=== PATIENT | female | born 1995 | race African-American/Black ===

== ENCOUNTER 2018-07-22 20:12 | Emergency (ER) | payer SELFPAY ==
[~2018-07-22] VITALS: Wt 67.5 kg
[2018-07-22 20:15] VITALS: Wt 67.5 kg
--- NOTE | 2018-07-22 22:20 | ERD ---
ER Documentation Chief Complaint Chief Complaint ginny ra from home for cutting herself on the right forearm /wrist area hx si HPI This is a 22-year-old female who is here for cutting her left wrist. The patient states that she got into an argument with her boyfriend and she said she had a box blank machine operator at home and she cut her wrists because she thought it would make her feel better. She said when she was 10 years old she cut her wrists on purpose because she read that bloodletting would make you feel better so she thought she would try this again. She is denying any suicidal ideation to me. The boyfriend is here with [facility] and he says that they got into a break up an argument earlier this evening and that she called him and told him that she is going to the store to buy a box blank machine operator and slit her wrist to kill herself. ROS All systems reviewed and are negative except as per history of present illness. PMhx/Soc Medical and Surgical Hx: pt denies Medical Hx, pt denies Surgical Hx History of Surgery: No Anesthesia Reaction: No Hx Neurological Disorder: No Hx Respiratory Disorders: No Hx Cardiac Disorders: No Hx Psychiatric Problems: Yes (hx of si 10 + years ago ) Hx Miscellaneous Medical Probl: No Hx Alcohol Use: No Hx Substance Use: No Hx Tobacco Use: No Smoking Status: Never smoker FmHx Family History: No coronary disease Physical Exam Vitals Vital Signs Date Temp Pulse Resp B/P (MAP) Pulse Ox O2 O2 Flow FiO2 Time Delivery Rate 07/22/18 98.3 89 19 126/65 100 20:15 (85) Physical Exam Const: No acute distress Head: Atraumatic Eyes: Normal Conjunctiva ENT: Normal External Ears, Nose and Mouth. Neck: Full range of motion. No meningismus. Resp: Clear to auscultation bilaterally Cardio: Regular rate and rhythm, no murmurs Abd: Soft, non tender, non distended. Normal bowel sounds Skin: Multiple superficial lacerations to the left volar surface of the distal forearm nothing is suturable Back: No midline or flank tenderness Ext: No cyanosis, or edema Neur: Awake and alert Psych: She is denying suicidal ideation however her reasoning is irrational Result Diagram: 07/22/18202907/22/182029 Results 24 hrs Laboratory Tests Test 07/22/18 20:30 White Blood Count 6.2 10^3/ul Red Blood Count 4.37 10^6/ul Hemoglobin 13.3 g/dl Hematocrit 40.0 % Mean Corpuscular Volume 91.5 fl Mean Corpuscular Hemoglobin 30.4 pg Mean Corpuscular Hemoglobin Concent 33.3 g/dl Red Cell Distribution Width 13.9 % Platelet Count 211 10^3/UL Mean Platelet Volume 11.7 fl Immature Granulocytes % 0.200 % Nucleated Red Blood Cells % 0.0 /100WBC Immature Granulocytes # 0.010 10^3/ul Sodium Level 141 mmol/L Potassium Level 3.6 mmol/L Chloride Level 105 mmol/L Carbon Dioxide Level 22 mmol/L Anion Gap 14 Blood Urea Nitrogen 12 mg/dl Creatinine 0.71 mg/dl Est Glomerular Filtrat Rate mL/min > 60 mL/min Glucose Level 88 mg/dl Calcium Level 9.7 mg/dl Total Bilirubin 0.4 mg/dl Direct Bilirubin 0.00 mg/dl Indirect Bilirubin 0.4 mg/dl Aspartate Amino Transf (AST/SGOT) 28 IU/L Alanine Aminotransferase (ALT/SGPT) 14 IU/L Alkaline Phosphatase 57 IU/L Total Protein 8.1 g/dl Albumin 4.6 g/dl Globulin 3.50 g/dl Albumin/Globulin Ratio 1.31 Salicylates Level < 1.0 mg/dl Urine Opiates Screen Negative Acetaminophen Level < 10.0 ug/ml Urine Barbiturates Negative Urine Amphetamines Screen Negative Urine Benzodiazepines Screen Negative Urine Cocaine Screen Negative Urine Cannabinoids Negative Ethyl Alcohol Level < 10.0 mg/dl Procedures/MDM Patient will be evaluated by telemetry psychiatry will be on a 5150 hold per [employer] and transferred to inpatient Departure Diagnosis: Primary Impression: Suicidal ideation Condition: Stable JOSE GOMEZ DO Jul 22, 2018 22:20
--- NOTE | 2018-07-23 00:28 | PSY ---
Date/Time of Note Date/Time of Note DATE: 07/23/18 TIME: 00:03 Psychiatric Subjective Eval Consent Pt consented to telemedicine: Yes Subjective Evaluation Patient location: emergency Chief Complaint: bib ra from home for cutting herself on the right forearm /wrist area hx si Medical history Problems Medical Problems: (1) Suicidal ideation Status: Acute Psychiatric Objective Eval Mental Status Examination: Laboratory Results Laboratory Tests Test 07/22/18 20:30 White Blood Count 6.2 10^3/ul Red Blood Count 4.37 10^6/ul Hemoglobin 13.3 g/dl Hematocrit 40.0 % Mean Corpuscular Volume 91.5 fl Mean Corpuscular Hemoglobin 30.4 pg Mean Corpuscular Hemoglobin Concent 33.3 g/dl Red Cell Distribution Width 13.9 % Platelet Count 211 10^3/UL Mean Platelet Volume 11.7 fl Immature Granulocytes % 0.200 % Nucleated Red Blood Cells % 0.0 /100WBC Immature Granulocytes # 0.010 10^3/ul Sodium Level 141 mmol/L Potassium Level 3.6 mmol/L Chloride Level 105 mmol/L Carbon Dioxide Level 22 mmol/L Anion Gap 14 Blood Urea Nitrogen 12 mg/dl Creatinine 0.71 mg/dl Est Glomerular Filtrat Rate mL/min > 60 mL/min Glucose Level 88 mg/dl Calcium Level 9.7 mg/dl Total Bilirubin 0.4 mg/dl Direct Bilirubin 0.00 mg/dl Indirect Bilirubin 0.4 mg/dl Aspartate Amino Transf (AST/SGOT) 28 IU/L Alanine Aminotransferase (ALT/SGPT) 14 IU/L Alkaline Phosphatase 57 IU/L Total Protein 8.1 g/dl Albumin 4.6 g/dl Globulin 3.50 g/dl Albumin/Globulin Ratio 1.31 Salicylates Level < 1.0 mg/dl Urine Opiates Screen Negative Acetaminophen Level < 10.0 ug/ml Urine Barbiturates Negative Urine Amphetamines Screen Negative Urine Benzodiazepines Screen Negative Urine Cocaine Screen Negative Urine Cannabinoids Negative Ethyl Alcohol Level < 10.0 mg/dl Assessment and Plan Recommendation/Plan Multiple antipsychotics: No Discharge Disposition: Psychiatric inpatient Legal Status: Continue involuntary hold Assessment Additional comments: IDENTIFYING INFORMATION: 22 year old -[place] Female patient who is currently located at the hospital and for whom psychiatric consultation was requ ested. SOURCES OF INFORMATION: The patient who appears to be somewhat reliable and the medical records; the nursing staff. I asked to discuss with the patient's boyfriend to obtain collateral but he was not available. the patient reports that she does not know his number, and he was not at the waiting area. CHIEF COMPLAINT: "I cut myself". HISTORY OF PRESENT ILLNESS: The patient was interviewed via telemedicine in the presence of and under the supervision of nursing staff of the hospital. The consent to conducting this interview via telemedicine was obtained by the nursing staff at the hospital. VERONICA Urena reports that the patient presented with self-inflicted laceration to forearm. According to the emergency room physician's note, the patient told her boyfriend that she was going to buy a jukebox coin collector and slit her wrists to kill herself. The patient reports having cut herself to feel better. Reports that her boyfriend thinks that she was trying to kill herself. Admits to intermittent depression. The patient denies having anhedonia, insomnia, low appetite, AH, VH, delusions. The patient denies using alcohol heavily or regularly. The patient denies using any other substances. In terms of past psychiatric history, the patient reports having a history of no past psychiatric hospitalizations. The patient reports having a history of h/o self-harm, by cutting herself; denies having h/o past suicide attempts. PAST MEDICAL HISTORY: none. CURRENT MEDICATIONS: none. ALLERGIES TO MEDICATIONS: NKDA. LABORATORY TESTS: CBC unremarkable, CMP unremarkable, UDS negative, alcohol level not detected. SOCIAL HISTORY: lives with boyfriend, , but , no children; self-employed as an adult film actress, graduated from high school; no access to firearms. REVIEW OF SYSTEMS: Constitutional (e.g., fever, weight loss): negative; Eyes, Ears, Nose, Mouth, Throat: negative; Cardiovascular: negative; Respiratory: negative; Gastrointestinal: negative; Genitourinary: negative; Musculoskeletal: negative; Integumentary (skin and/or breast): negative; Neurological: negative; Psychiatric: as per HPI; Endocrine: negative; Hematologic/Lymphatic: negative; Allergic/Immunologic: negative. MENTAL STATUS EXAMINATION: General Appearance and Behavior: Calm, cooperative with the interview, pleasant with the current interviewer, makes fair eye contact, fairly groomed, no abnormal movements noted, Speech: Regular rate, regular rhythm, normal latency, normal volume, somewhat decreased amount, Flow of thought: sequential, logical, goal-directed, Content of thought: no auditory hallucinations, no visual hallucinations, no delusions, positive for suicidal ideation; no homicidal ideation, Mood: "upset", Affect: dysthymic, reactive, Attention: normal based on the interview, Insight: fair, Judgment: poor, Memory: normal based on the interview, Sensorium: alert and oriented to person, place and date. ASSESSMENT: The patient's presentation and history are consistent with the diagnosis of unspecified mood disorder. The patient presents after reporting that he was going to kill herself to her boyfriend. No evidence of psychosis, tejas, hypomania on exam. PLAN: - Medication management: Would start haloperidol 5 mg IM PRN severe agitation q4 hours. Would start diphenhydramine 50 mg IM PRN severe agitation q4 hours. Would start lorazepam 2 mg IM PRN severe agitation q4 hours Will defer to the inpatient psychiatry team for other medication changes. - Labs: No other laboratory tests are needed at this time. - Psychotherapy: Provided supportive psychotherapy and psychoeducation. - Disposition: Would recommend involuntary admission to the inpatient psychiatric unit given the severity of the patient's psychiatric condition and the fact that the patient is an imminent danger to self and/or others so long as the patient has been cleared medically for admission to psychiatry. Inpatient psychiatric admission is at this time the least restrictive environment where the patient can receive the psychiatric care that is needed. Would place on suicide precautions. The patient fulfills criteria for being placed on an involuntary hold for being a danger to self due to a psychiatric disorder. Discussed about the above plan with Dr. Churchill. ANDREW MOROCHO MD Jul 23, 2018 00:13
--- NOTE | 2018-07-23 00:56 | EN ---
Date/Time of Note Date/Time of Note DATE: 07/23/18 TIME: 00:55 ER Progress Note The patient was observed with serial exams over the above timeframe. Patient became acutely agitated and required a dosage of ketamine to calm her down. Routine psychiatric medications ordered: Still pending psychiatric placement Hold status: Patient is pending placement STPEHEN THORPE Jul 23, 2018 00:56
[2018-07-23 19:48] VITALS: BP 112/95; PULSE 80; RESP 16
== END 2018-07-23 19:57 ==
LOC: E/R 20:12
DX: S51.812A Laceration without foreign body of left forearm, initial encounter (principal); R45.851 Suicidal ideations; W26.8XXA Contact with other sharp object(s), not elsewhere classified, initial encounter; Y92.009 Unspecified place in unspecified non-institutional (private) residence as the place of occurrence of the external cause
CPT/HCPCS: 36415; 80053; 80307; 81025; 85025; 99285